=== PATIENT | female | born 1970 | race Caucasian/White ===

== ENCOUNTER → 2016-07-01 | Outpatient (CLI) | payer OTHER ==
[~2016-07-01] MED LIST: ADRENACLICK1 MG/ML IJ; ALLEGRA180 MG PO; ALPHA LIPOIC A100 MG PO; ATORVASTATIN CA10 MG PO; BENTYL10 M1 PO; DICYCLOMINE HCL10 MG PO; EPIPEN 2-PAK1 MG/ML MR; FEXOFENADINE H180 M1 PO; LEVEMIR FLEX100 U/ML SQ; OMEGA-31 SGL PO; SERTRALINE HCL50 MG PO; SERTRALINE HYD100 MG PO; SYNTHROID0.05 MG PO; ULTRAM50 M1 PO; VALIUM5 M1 PO; VIBRAMYCIN HYC100 MG PO
== END ==
LOC: LAB 11:00
DX: E11.9 Type 2 diabetes mellitus without complications (principal)

== ENCOUNTER → 2016-11-06 | Outpatient (CLI) | payer OTHER ==
[~2016-11-06] VITALS: Ht 162.6 cm; Wt 81.4 kg
[2016-11-06 16:42] VITALS: BP 156/88
== END ==
LOC: AMSURD 16:25
DX: D25.9 Leiomyoma of uterus, unspecified (principal); R03.0 Elevated blood-pressure reading, without diagnosis of hypertension

== ENCOUNTER → 2016-12-18 | Outpatient (CLI) | payer OTHER ==
[2016-11-06 16:42] VITALS: BP 156/88
== END ==
LOC: LAB 10:14
DX: D25.9 Leiomyoma of uterus, unspecified (principal); E11.9 Type 2 diabetes mellitus without complications; M76.60 Achilles tendinitis, unspecified leg; M16.11 Unilateral primary osteoarthritis, right hip; K90.0 Celiac disease; E07.89 Other specified disorders of thyroid; K76.0 Fatty (change of) liver, not elsewhere classified; I10 Essential (primary) hypertension

== ENCOUNTER → 2017-08-25 | Outpatient (CLI) | payer OTHER ==
[2016-11-06 16:42] VITALS: BP 156/88
[2017-08-25 11:59] LABS: BUN/CREATININE RATIO 23.4 (6.0-26.0); CALCIUM 9.8 mg/dL (8.4-10.2); POTASSIUM 4.4 mmol/L (3.6-5.0); TOTAL BILIRUBIN 1.1 mg/dL (0.2-1.3); TOTAL PROTEIN 7.2 g/dL (6.3-8.2)
== END ==
LOC: LAB 10:59
PROVIDERS: Family Medicine
DX: E03.9 Hypothyroidism, unspecified (principal); E11.9 Type 2 diabetes mellitus without complications; K76.0 Fatty (change of) liver, not elsewhere classified

== ENCOUNTER → 2017-09-27 | Outpatient (CLI) | payer OTHER ==
[2016-11-06 16:42] VITALS: BP 156/88
[2017-09-27 18:02] LABS: EOS # 0.1 (0.04-0.40); EOS % 1.3 % (1.0-5.0); HEMATOCRIT 41.8 % (37.0-47.0); HEMOGLOBIN 13.6 g/dL (12.5-16.0); LYMPH# 2.3 (1.50-4.00); MEAN CELL VOLUME 89 fl (78-100); MEAN CORPUSCULAR HEMOGLOBIN 29 pg (27-31); MEAN CORPUSCULAR HGB CONC 33 g/dL (33-37); MEAN PLATELET VOLUME 10.9 fl (7.4-10.4); MONO # 0.5 (0.20-0.80); NEU # 4.7 (1.40-6.50); PLATELET COUNT 246 K/mm3 (130-400); RED BLOOD COUNT 4.71 M/mm3 (4.10-5.30); RED CELL DISTRIBUTION WIDTH 12.9 % (11.5-14.5); WHITE BLOOD COUNT 7.6 K/mm3 (4.8-10.8)
[2017-09-27 19:18] LABS: ERYTHROCYTE SEDIMENTATION RATE 17 mm/hr (0-20)
[2017-09-28 22:56] LABS: ANA SCREEN with REFLEX Negative (Negative)
== END ==
LOC: LAB 17:37
PROVIDERS: Family Medicine
DX: E11.9 Type 2 diabetes mellitus without complications (principal); M25.50 Pain in unspecified joint

== ENCOUNTER → 2017-11-06 | Outpatient (CLI) | payer OTHER ==
[~2017-11-06] VITALS: Ht 162.6 cm; Wt 81.4 kg
[2017-11-06 15:40] VITALS: BP 136/86
== END ==
LOC: AMSURD 14:35
DX: E86.0 Dehydration (principal); K52.9 Noninfective gastroenteritis and colitis, unspecified
CPT/HCPCS: J7030

== ENCOUNTER → 2018-03-23 | Outpatient (CLI) | payer OTHER ==
[2017-11-06 15:40] VITALS: BP 136/86
[2018-03-23 09:04] LABS: ALBUMIN 4.3 g/dL (3.5-5.0); CALCIUM 9.4 mg/dL (8.4-10.2); POTASSIUM 4.4 mmol/L (3.6-5.0); TOTAL BILIRUBIN 0.9 mg/dL (0.2-1.3); TOTAL PROTEIN 7.5 g/dL (6.3-8.2)
== END ==
LOC: LAB 08:31
PROVIDERS: Family Medicine
DX: E03.9 Hypothyroidism, unspecified (principal); E11.9 Type 2 diabetes mellitus without complications; K76.0 Fatty (change of) liver, not elsewhere classified; I10 Essential (primary) hypertension; E78.00 Pure hypercholesterolemia, unspecified

== ENCOUNTER → 2018-04-11 | Outpatient (CLI) | payer OTHER ==
[2017-11-06 15:40] VITALS: BP 136/86
== END ==
LOC: LAB 16:38
DX: G31.84 Mild cognitive impairment of uncertain or unknown etiology (principal)

== ENCOUNTER → 2018-05-20 | Outpatient (CLI) | payer OTHER ==
[2017-11-06 15:40] VITALS: BP 136/86
[2018-05-20 18:48] LABS: EOS # 0.2 (0.04-0.40); EOS % 2.2 % (1.0-5.0); HEMATOCRIT 40.3 % (37.0-47.0); HEMOGLOBIN 13.4 g/dL (12.5-16.0); LYMPH# 2.1 (1.50-4.00); MEAN CELL VOLUME 88 fl (78-100); MEAN CORPUSCULAR HEMOGLOBIN 29 pg (27-31); MEAN CORPUSCULAR HGB CONC 33 g/dL (33-37); MONO # 0.7 (0.20-0.80); NEU # 4.3 (1.40-6.50); PLATELET COUNT 220 K/mm3 (130-400); RED BLOOD COUNT 4.56 M/mm3 (4.10-5.30); RED CELL DISTRIBUTION WIDTH 12.4 % (11.5-14.5); WHITE BLOOD COUNT 7.3 K/mm3 (4.8-10.8)
[2018-05-20 19:10] LABS: MEAN PLATELET VOLUME 12.4 fl (7.4-10.4)
[2018-05-21 14:27] LABS: HEPATITIS B SURFACE ANTIBODY <2.0 (()); HEPATITIS B SURFACE ANTIGEN Negative (Negative)
== END ==
LOC: LAB 16:04
PROVIDERS: Internal Medicine Gastroenterology
DX: K76.0 Fatty (change of) liver, not elsewhere classified (principal); R74.0 Nonspecific elevation of levels of transaminase and lactic acid dehydrogenase [LDH]

== ENCOUNTER → 2018-07-25 | Outpatient (CLI) | payer OTHER ==
[2017-11-06 15:40] VITALS: BP 136/86
[2018-07-25 17:18] LABS: ALBUMIN 4.6 g/dL (3.5-5.0); CALCIUM 9.6 mg/dL (8.4-10.2); POTASSIUM 3.9 mmol/L (3.6-5.0); TOTAL BILIRUBIN 0.5 mg/dL (0.2-1.3); TOTAL PROTEIN 8.4 g/dL (6.3-8.2)
[2018-07-25 17:21] LABS: URINE APPEARANCE CLEAR; URINE COLOR YELLOW; URINE PROTEIN(semi-quant) NEGATIVE (NEGATIVE)
[2018-07-25 17:22] LABS: URINE BILIRUBIN NEGATIVE (NEGATIVE); URINE BLOOD NEGATIVE (NEGATIVE); URINE KETONE NEGATIVE (NEGATIVE); URINE LEUKOCYTE ESTERASE NEGATIVE (NEGATIVE); URINE NITRATE NEGATIVE (NEGATIVE); URINE UROBILINOGEN NORMAL (NORMAL); URINE WBC 0-1 /hpf (0-3)
== END ==
LOC: LAB 16:41
PROVIDERS: Family Medicine
DX: E11.9 Type 2 diabetes mellitus without complications (principal); R10.9 Unspecified abdominal pain; R07.9 Chest pain, unspecified; R39.15 Urgency of urination; K76.0 Fatty (change of) liver, not elsewhere classified

== ENCOUNTER → 2019-02-07 | Outpatient (CLI) | payer OTHER ==
[2017-11-06 15:40] VITALS: BP 136/86
[2019-02-07 23:12] LABS: T3 FREE 2.7 pg/mL (1.7-3.7)
== END ==
LOC: LAB 16:55
PROVIDERS: Family Medicine
DX: E07.89 Other specified disorders of thyroid (principal)

== ENCOUNTER → 2019-07-12 | Outpatient (CLI) | payer OTHER ==
[2017-11-06 15:40] VITALS: BP 136/86
[2019-07-12 15:45] LABS: ALBUMIN 4.4 g/dL (3.5-5.0)
[2019-07-12 15:48] LABS: TOTAL PROTEIN 7.5 g/dL (6.4-8.3)
[2019-07-12 15:49] LABS: TOTAL BILIRUBIN 0.9 mg/dL (0.2-1.2)
[2019-07-12 15:53] LABS: DIRECT BILIRUBIN 0.3 mg/dL (0.0-0.5)
== END ==
LOC: LAB 15:04
PROVIDERS: Family Medicine
DX: E78.2 Mixed hyperlipidemia (principal); K75.81 Nonalcoholic steatohepatitis (NASH)

== ENCOUNTER → 2019-07-26 | Outpatient (CLI) | payer OTHER ==
[2017-11-06 15:40] VITALS: BP 136/86
[2019-07-26 12:38] LABS: PROTHROMBIN TIME 9.9 SECONDS (9.0-12.0)
== END ==
LOC: LAB 10:36
PROVIDERS: Family Medicine
DX: K58.8 Other irritable bowel syndrome (principal); K76.0 Fatty (change of) liver, not elsewhere classified; K90.0 Celiac disease; E11.9 Type 2 diabetes mellitus without complications; E03.9 Hypothyroidism, unspecified

== ENCOUNTER → 2019-12-12 | Outpatient (CLI) | payer OTHER ==
[2017-11-06 15:40] VITALS: BP 136/86
== END ==
LOC: LAB 12:03
DX: M79.10 Myalgia, unspecified site (principal); R05 Cough; R51 Headache; R19.7 Diarrhea, unspecified; R09.81 Nasal congestion; R53.83 Other fatigue; E11.9 Type 2 diabetes mellitus without complications; Z20.828 Contact with and (suspected) exposure to other viral communicable diseases

== ENCOUNTER → 2020-01-15 | Outpatient (CLI) | payer OTHER ==
[2017-11-06 15:40] VITALS: BP 136/86
[2020-01-15 11:34] LABS: ALBUMIN 4.4 g/dL (3.5-5.0); POTASSIUM 4.5 mmol/L (3.5-5.1)
[2020-01-15 11:36] LABS: CALCIUM 9.7 mg/dL (8.3-10.5)
[2020-01-15 11:37] LABS: TOTAL PROTEIN 8.2 g/dL (6.4-8.3)
[2020-01-15 11:39] LABS: TOTAL BILIRUBIN 0.7 mg/dL (0.2-1.2)
[2020-01-17 04:21] LABS: BAKERS YEAST ALLERGEN COUNT <0.10 kU/L (()); CORN ALLERGEN COUNT <0.10 kU/L (()); MILK ALLERGEN COUNT <0.10 kU/L (()); ORANGE ALLERGEN COUNT <0.10 kU/L (()); PEANUT ALLERGEN COUNT 0.38 kU/L (()); RICE ALLERGEN COUNT <0.10 kU/L (()); SOYBEAN ALLERGEN COUNT <0.10 kU/L (()); STRAWBERRY ALLERGEN COUNT <0.10 kU/L (()); TOMATO ALLERGEN COUNT 0.15 kU/L (()); WHEAT ALLERGEN COUNT <0.10 kU/L (())
== END ==
LOC: LAB 11:05
PROVIDERS: Family Medicine
DX: E11.9 Type 2 diabetes mellitus without complications (principal); E78.2 Mixed hyperlipidemia; L50.9 Urticaria, unspecified

== ENCOUNTER → 2020-04-20 | Outpatient (CLI) | payer OTHER ==
[2017-11-06 15:40] VITALS: BP 136/86
== END ==
LOC: LAB 09:31
DX: J02.9 Acute pharyngitis, unspecified (principal); M79.10 Myalgia, unspecified site; R09.81 Nasal congestion; R19.7 Diarrhea, unspecified; Z20.828 Contact with and (suspected) exposure to other viral communicable diseases

== ENCOUNTER → 2020-06-03 | Outpatient (CLI) | payer OTHER ==
[2017-11-06 15:40] VITALS: BP 136/86
== END ==
LOC: LAB 16:26
DX: E11.9 Type 2 diabetes mellitus without complications (principal); E07.9 Disorder of thyroid, unspecified; Z86.39 Personal history of other endocrine, nutritional and metabolic disease

== ENCOUNTER → 2020-09-28 | Outpatient (CLI) | payer OTHER ==
[2017-11-06 15:40] VITALS: BP 136/86
[2020-09-28 08:01] LABS: HEMATOCRIT 42.5 % (37.0-47.0); HEMOGLOBIN 13.9 g/dL (12.5-16.0); MEAN PLATELET VOLUME 10.6 fl (7.4-10.4); RED BLOOD COUNT 4.8 M/mm3 (4.10-5.30); RED CELL DISTRIBUTION WIDTH 12.6 % (11.5-14.5); WHITE BLOOD COUNT 6.3 K/mm3 (4.8-10.8)
[2020-09-28 08:15] LABS: ALBUMIN 4.2 g/dL (3.5-5.0)
[2020-09-28 08:16] LABS: CALCIUM 9.2 mg/dL (8.3-10.5)
[2020-09-28 08:17] LABS: TOTAL PROTEIN 7.5 g/dL (6.4-8.3)
[2020-09-28 08:19] LABS: TOTAL BILIRUBIN 0.4 mg/dL (0.2-1.2)
[2020-09-28 08:24] LABS: MAGNESIUM 1.94 mg/dL (1.60-2.60)
[2020-09-30 12:29] LABS: LIPOPROTEIN A 11 mg/dL (<=30)
== END ==
LOC: LAB 07:42
PROVIDERS: Internal Medicine
DX: E78.00 Pure hypercholesterolemia, unspecified (principal); E55.9 Vitamin D deficiency, unspecified; Z13.29 Encounter for screening for other suspected endocrine disorder

== ENCOUNTER → 2020-09-30 | Outpatient (CLI) | payer OTHER ==
[2017-11-06 15:40] VITALS: BP 136/86
== END ==
LOC: LAB 18:23
DX: Z13.29 Encounter for screening for other suspected endocrine disorder (principal); E55.9 Vitamin D deficiency, unspecified; E78.00 Pure hypercholesterolemia, unspecified

== ENCOUNTER → 2020-10-11 | Outpatient (CLI) | payer OTHER ==
[2017-11-06 15:40] VITALS: BP 136/86
[2020-10-11 08:00] LABS: ALBUMIN 4.2 g/dL (3.5-5.0)
[2020-10-11 08:01] LABS: CALCIUM 9.7 mg/dL (8.3-10.5)
[2020-10-11 08:02] LABS: TOTAL PROTEIN 7.4 g/dL (6.4-8.3)
[2020-10-11 08:04] LABS: TOTAL BILIRUBIN 0.5 mg/dL (0.2-1.2)
== END ==
LOC: LAB 07:15
DX: E03.9 Hypothyroidism, unspecified (principal); E55.9 Vitamin D deficiency, unspecified; E78.2 Mixed hyperlipidemia; E11.69 Type 2 diabetes mellitus with other specified complication; E66.9 Obesity, unspecified

== ENCOUNTER → 2020-10-12 | Outpatient (CLI) | payer OTHER ==
[2017-11-06 15:40] VITALS: BP 136/86
== END ==
LOC: RAD 06:59
DX: M51.34 Other intervertebral disc degeneration, thoracic region (principal); M47.816 Spondylosis without myelopathy or radiculopathy, lumbar region

== ENCOUNTER → 2021-02-25 | Outpatient (CLI) | payer OTHER ==
[2021-02-25 19:25] LABS: ALBUMIN 4.3 g/dL (3.5-5.0); POTASSIUM 3.7 mmol/L (3.5-5.1)
[2021-02-25 19:26] LABS: CALCIUM 10.6 mg/dL (8.3-10.5)
[2021-02-25 19:27] LABS: TOTAL PROTEIN 7.7 g/dL (6.4-8.3)
== END ==
LOC: LAB 18:57
PROVIDERS: Internal Medicine
DX: E78.00 Pure hypercholesterolemia, unspecified (principal); E55.9 Vitamin D deficiency, unspecified; E11.9 Type 2 diabetes mellitus without complications

== ENCOUNTER → 2021-03-19 | Outpatient (CLI) | payer OTHER | LOC: LAB 17:29 | DX: J01.90 Acute sinusitis, unspecified (principal); Z20.822 Contact with and (suspected) exposure to COVID-19 ==

== ENCOUNTER → 2021-06-27 | Outpatient (CLI) | payer OTHER ==
[2021-06-27 20:08] LABS: BASO # 0.02 K/mm3 (0.02-0.10); EOS # 0.07 K/mm3 (0.04-0.40); EOS % 1.5 % (1.0-5.0); HEMATOCRIT 44.4 % (37.0-47.0); HEMOGLOBIN 14.3 g/dL (12.5-16.0); LYMPH# 1.51 K/mm3 (1.50-4.00); MEAN CELL VOLUME 90 fl (78-100); MEAN CORPUSCULAR HEMOGLOBIN 29 pg (27-31); MEAN CORPUSCULAR HGB CONC 32 g/dL (33-37); MONO # 0.66 K/mm3 (0.20-0.80); NEU # 2.53 K/mm3 (1.40-6.50); PLATELET COUNT 195 K/mm3 (130-400); RED BLOOD COUNT 4.94 M/mm3 (4.10-5.30); RED CELL DISTRIBUTION WIDTH 12.4 % (11.5-14.5); WHITE BLOOD COUNT 4.8 K/mm3 (4.8-10.8)
[2021-06-27 20:19] LABS: ALBUMIN 4.4 g/dL (3.5-5.0)
[2021-06-27 20:20] LABS: POTASSIUM 3.9 mmol/L (3.5-5.1)
[2021-06-27 20:21] LABS: CALCIUM 9.8 mg/dL (8.3-10.5)
[2021-06-27 20:22] LABS: TOTAL PROTEIN 7.9 g/dL (6.4-8.3)
[2021-06-27 20:24] LABS: TOTAL BILIRUBIN 0.6 mg/dL (0.2-1.2)
== END ==
LOC: LAB 19:47
PROVIDERS: Nurse Practitioner
DX: R50.9 Fever, unspecified (principal); R10.12 Left upper quadrant pain

== ENCOUNTER → 2021-06-29 | Outpatient (CLI) | payer OTHER | LOC: RAD 09:00 | DX: D18.03 Hemangioma of intra-abdominal structures (principal); Z98.890 Other specified postprocedural states; Z90.710 Acquired absence of both cervix and uterus | CPT/HCPCS: Q9967 ==

== ENCOUNTER → 2021-09-26 | Outpatient (CLI) | payer OTHER | LOC: AMSURD 17:05 | DX: Z01.818 Encounter for other preprocedural examination (principal) ==

== ENCOUNTER → 2021-09-27 | Outpatient (CLI) | payer OTHER | LOC: LAB 09-24 16:26 | DX: E11.9 Type 2 diabetes mellitus without complications (principal) ==

== ENCOUNTER → 2021-10-01 | Outpatient (CLI) | payer OTHER ==
[2021-10-01 17:20] LABS: URINE WBC 0 /hpf (0-3)
[2021-10-01 17:43] LABS: ALBUMIN 4.5 g/dL (3.5-5.0); BASO # 0.01 K/mm3 (0.02-0.10); EOS # 0.09 K/mm3 (0.04-0.40); EOS % 1.6 % (1.0-5.0); HEMATOCRIT 40.4 % (37.0-47.0); HEMOGLOBIN 13.1 g/dL (12.5-16.0); LYMPH# 2.22 K/mm3 (1.50-4.00); MEAN CELL VOLUME 90 fl (78-100); MEAN CORPUSCULAR HEMOGLOBIN 29 pg (27-31); MEAN CORPUSCULAR HGB CONC 32 g/dL (33-37); MEAN PLATELET VOLUME 10.1 fl (7.4-10.4); MONO # 0.35 K/mm3 (0.20-0.80); NEU # 3.02 K/mm3 (1.40-6.50); PLATELET COUNT 255 K/mm3 (130-400); POTASSIUM 4.4 mmol/L (3.5-5.1); RED BLOOD COUNT 4.49 M/mm3 (4.10-5.30); RED CELL DISTRIBUTION WIDTH 11.9 % (11.5-14.5); WHITE BLOOD COUNT 5.7 K/mm3 (4.8-10.8)
[2021-10-01 17:44] LABS: CALCIUM 10.6 mg/dL (8.3-10.5)
[2021-10-01 17:46] LABS: TOTAL PROTEIN 7.7 g/dL (6.4-8.3)
[2021-10-01 17:47] LABS: TOTAL BILIRUBIN 1.2 mg/dL (0.2-1.2)
[2021-10-01 17:54] LABS: PROTHROMBIN TIME 10.4 SECONDS (9.0-12.0)
[2021-10-01 17:58] LABS: URINE APPEARANCE HAZY; URINE BILIRUBIN NEGATIVE (NEGATIVE); URINE BLOOD TRACE (NEGATIVE); URINE COLOR YELLOW; URINE KETONE NEGATIVE (NEGATIVE); URINE LEUKOCYTE ESTERASE NEGATIVE (NEGATIVE); URINE NITRATE NEGATIVE (NEGATIVE); URINE PROTEIN(semi-quant) NEGATIVE (NEGATIVE); URINE UROBILINOGEN NORMAL (NORMAL)
== END ==
LOC: LAB 17:11
PROVIDERS: Family Medicine
DX: Z01.812 Encounter for preprocedural laboratory examination (principal); M16.9 Osteoarthritis of hip, unspecified; M25.822 Other specified joint disorders, left elbow

== ENCOUNTER → 2022-07-13 | Outpatient (CLI) | payer OTHER | LOC: LAB 12:10 | DX: J02.9 Acute pharyngitis, unspecified (principal); B34.9 Viral infection, unspecified ==